=== PATIENT | female | born 1950 | race Caucasian/White ===

== ENCOUNTER 2016-08-03 16:45 | Inpatient (IN) ==
[2016-08-03] MEDS ORDERED: Melatonin 3 MG TABLET PO PRN (17:33)
[2016-08-03] MEDS ORDERED: Artificial Tears SOLN 15 ML BOTTLE BOTH EYES PRN (17:56)
[2016-08-03] MEDS ORDERED: *HR* Warfarin 5 MG TABLET PO SCH (18:00)
[2016-08-03] MEDS: *HR* OxyCODONE/APAP 10/325 TABLET PO PRN (20:30)
[2016-08-03] MEDS: Magnesium Oxide 400 MG TABLET PO SCH (20:31)
[2016-08-03] MEDS ORDERED: Insulin DETEMIR 100 UNIT/ML per UNIT SQ ONE (21:00)
[2016-08-03] MEDS: Budesonide/Formoterol 160/4.5 MDI IH SCH (22:44)
[2016-08-03] MEDS: Ipratropium/Albuterol Neb 3 ML IH SCH (22:44)
[2016-08-04] MEDS: Ipratropium/Albuterol Neb 3 ML IH SCH ×2 (04:56→08:26)
[2016-08-04 05:47] LABS: Activated Partial Thrombo Time 37.3 Seconds (26.0-36.0)
[2016-08-04 05:49] LABS: Basophils % 0.2 %; Eosinophils # 0.4 K/mcL (0.0-0.6); Eosinophils % 4.9 %; Hemoglobin 8.4 g/dL (11.5-15.4); INR 1.9; Immature Granulocytes % 2.5 % (0-4); Lymphocytes # 1.2 K/mcL (0.6-4.6); Lymphocytes % 13.5 %; Mean Corpuscular HGB Conc 33.6 g/dL (31.6-35.5); Mean Corpuscular Hemoglobin 30.7 pg (28.0-33.3); Mean Corpuscular Volume 91.2 fL (83.0-100.0); Mean Platelet Volume 9.1 fL (9.4-12.4); Monocytes # 0.9 K/mcL (0.0-1.3); Monocytes % 10.2 %; Platelet Count 376 K/mcL (140-400); Prothrombin Time 21.1 Seconds (9.4-12.1); Red Blood Count 2.74 M/mcL (3.82-4.97); Red Cell Distribution Width 14.8 % (11.5-14.5); Segmented Neutrophils % 68.7 %
[2016-08-04 05:54] LABS: BUN/Creatinine Ratio 21 (6-26); Blood Urea Nitrogen 18 mg/dL (7-20); Calcium 8.7 mg/dL (8.6-10.8); Carbon Dioxide 28 mEq/L (19-29); Chloride 100 mEq/L (98-109); Glucose 152 mg/dL (70-99); Osmolality,Calculated 289 (280-300); Potassium 4.2 mEq/L (3.5-4.5); Sodium 137 mEq/L (136-145); eGFR For African Americans > 60 (> 60); eGFR For Non-African Americans > 60 (> 60)
[2016-08-04] MEDS ORDERED: Levothyroxine 25 MCG TABLET PO SCH (06:00)
[2016-08-04] MEDS ORDERED: *HR* Metformin 500 MG TABLET PO SCH (08:00)
[2016-08-04] MEDS: Magnesium Oxide 400 MG TABLET PO SCH (08:24)
[2016-08-04] MEDS: *HR* OxyCODONE/APAP 10/325 TABLET PO PRN (08:24)
[2016-08-04] MEDS: Budesonide/Formoterol 160/4.5 MDI IH SCH (08:27)
[2016-08-04] MEDS ORDERED: Aspirin 325 MG TABLET PO SCH (09:00)
[2016-08-04] MEDS ORDERED: Cholecalciferol (D-3) 1,000 UNIT TABLET PO SCH (09:00)
[2016-08-04] MEDS ORDERED: *HR* Amiodarone 200 MG TABLET PO SCH (09:00)
[2016-08-04] MEDS ORDERED: Furosemide 40 MG TABLET PO SCH (09:00)
--- NOTE | 2016-08-04 11:41 | Discharge Summary ---
Date of Encounter: 08/04/16 Time of Encounter: 11:39 - Discharge Diagnosis (1) S/P 2-vessel coronary artery bypass Priority: Primary Status: Acute Comments: Patient is status post CABG and is refusing to stay. She states she had good care at home and wants to be discharged. She was Evaluated by OT nor had any exam. Incision looks clean and dry and the patient' s able to stand up and ambulate and has walker and O2 at home - Discharge Medications Allergies/Adverse Reactions: Allergies No Known Allergies Allergy (Verified 08/03/16 17:13) Date of admission: 08/03/16 16:46 Primary care physician: Xi Valdez CNP Consults: 08/03/16 17:16 Consult to Occupational Therapy [CONS] Routine Comment: Deconditioning s/p CABG Reason for Consult: Deconditioning s/p CABG Consult to Physical Therapy [CONS] Routine Comment: Deconditioning s/p CABG Reason for Consult: Deconditioning s/p CABG Consult to Recreational Therapy [CONS] Routine Comment: Consult to Thermal Molder [CONS] Routine Reason for SW Consult: Deconditioning Discharging clinician: Balta Schofield Anticipated date of discharge: 08/04/16 - Patient Status Disposition: Home Health Service Condition: Good Functional capacity at discharge: uses cane/walker Overall status at discharge: patient is progressing back to baseline - Discharge Instructions Follow Up With: Xi Valdez CNP [Primary Care Provider] - - Diet and Activity Activity: ambulate only with your walker Diet: advance to your usual diet Interval History: Patient was admitted last p.m. but is not going to stay. She essentially is demanding discharge now .she does request home health. Hospital course: Ms. doyle is a 66 year old female - Time Spent with Patient Total time spent providing and/or coordinating discharge services: - Constitutional Vitals: Temp Pulse Resp BP Pulse Ox 97.0 F L 90 16 158/72 94 08/04/16 07:00 08/04/16 08:29 08/04/16 08:29 08/04/16 08:29 08/04/16 08:29 - Head Head exam: Present: atraumatic, normal inspection, normocephalic - Cardiovascular Cardiovascular exam: Present: RRR, +S1, +S2. Absent: diastolic murmur, gallop, rubs, systolic murmur Additional comments: Patient is status post CABG incision is clean and dry.
--- NOTE | 2016-08-04 11:47 | Physician Discharge Referral ---
Home Health/Hosp Referral Info Transfer to: Home Health Provider in Charge Post Discharge: PCP (Patient was informed that she needs to make an appointment with her surgeon in follow-up and also with her primary primary care sales representative) - Diagnosis (1) S/P 2-vessel coronary artery bypass Priority: Primary Status: Acute - Respiratory Orders Oxygen / L per min (2) Smoking Cessation: Smoking cessation has been advised. For more information, call the [employer] Quit Line at 6-053-ERVG-NOW. Patient has O2 2 L per nasal cannula - Services Needed Following services are medically necessary services: Nursing, Physical Therapy, Occupational Therapy Home Care Orders: She will need weekly INRs for Coumadin. - Transfer Medications Allergies/Adverse Reactions: Allergies No Known Allergies Allergy (Verified 08/03/16 17:13) Certification: Further, I certify that my clinical findings support that this patient is homebound (i.e. absences from home require considerable and taxing effort and are for medical reasons or anglican services or infrequently or short duration when for other reasons) because: Homebound Reason: Patient requires assistance of a person or device to safely leave home Attestation: My signature below is to certify that this patient is under my care and that I, or nurse practitioner, or a physician's manufacturing assistant working with me, has a face-to -face encounter with this patient.
--- NOTE | 2016-08-04 11:50 | Internal Med History&Physical ---
Date of Encounter: 08/04/16 Time of Encounter: 11:48 Assessment and Plan (1) S/P 2-vessel coronary artery bypass Current visit: Yes Status: Acute She had a CABG and has a median sternotomy. Screening dry. Since she is being discharged she was not given a thorough examination Internal Medicine - H&P: HPI Chief complaint: Patient is status post CABG Admitted From: Hospital to Hospital Transfer Plans for Post Hospital Care: Home History of present illness: Ms. doyle is a 66 year old female Past Med Surg Social Fam HX - Past Medical History Medical history: COPD, diabetes, hyperlipidemia, hypertension - Past Surgical History Surgical History: cholecystectomy, hysterectomy, thyroidectomy - Social History Smoking Status: Former smoker Smokeless Tobacco Status: No Alcohol use: none Drug use: none Internal Medicine - H&P: Meds Allergies No Known Allergies Allergy (Verified 08/03/16 17:13) All Systems PM: A 10-system review of systems was performed and is negative for pertinent findings except as documented above in the HPI. - Constitutional Vitals: Temp Pulse Resp BP Pulse Ox 97.0 F L 90 16 158/72 94 08/04/16 07:00 08/04/16 08:29 08/04/16 08:29 08/04/16 08:29 08/04/16 08:29 - Head Head exam: Present: atraumatic, normal inspection, normocephalic - Neck Neck exam general surgery: Present: supple, trachea midline. Absent: lymphadenopathy - Cardiovascular Cardiovascular exam: Present: RRR, +S1, +S2. Absent: diastolic murmur, gallop, rubs, systolic murmur Additional comments: Patient has anterior median sternotomy which is clean dry Internal Med - H&P Results - Labs CBC & Chem 7: 08/04/16 05:30 08/04/16 05:30 Labs: Short CBC 08/04/16 Range/Units 05:30 WBC 8.7 (4.3-11.1) K/mcL Hgb 8.4 L (11.5-15.4) g/dL Hct 25.0 L (35.3-44.9) % Plt Count 376 (140-400) K/mcL Neutrophils # 6.0 (1.6-8.9) K/mcL BMP 08/04/16 05:30 Sodium 137 Potassium 4.2 Chloride 100 Carbon Dioxide 28 BUN 18 Creatinine 0.87 Glucose 152 H Calcium 8.7
[2016-08-04 12:03] VITALS: BP 108/76
[2016-08-04] MEDS ORDERED: Insulin DETEMIR 100 UNIT/ML X5UNITS SQ SCH (21:00)
[2016-08-09] MEDS ORDERED: *HR* Amiodarone 200 MG TABLET PO SCH (09:00)
[2016-08-16] MEDS ORDERED: *HR* Amiodarone 200 MG TABLET PO SCH (09:00)
== END 2016-08-04 16:00 | disposition home health service (06) | DRG 950 ==
LOC: INPGRE 16:46
PROVIDERS: ADMIT Internal Medicine; ATTEND Internal Medicine